=== PATIENT | female | born 1965 | race Caucasian/White ===

== ENCOUNTER → 2021-05-17 | Outpatient (CLI) | payer OTHER | LOC: EXRD 10:15 | DX: M25.512 Pain in left shoulder (principal) | CPT/HCPCS: 73030 ==

== ENCOUNTER 2021-08-14 07:38 | Emergency (ER) | payer OTHER ==
[2021-08-14] MEDS ORDERED: HYDROXYZINE HCL25 MG PO (10:24)
== END 2021-08-14 10:50 | disposition home or self-care (01) ==
LOC: ER1 07:38
DX: L50.9 Urticaria, unspecified (principal); Z90.710 Acquired absence of both cervix and uterus; Z90.49 Acquired absence of other specified parts of digestive tract
CPT/HCPCS: 96374; 96375; 99282; J1100; J1200; J2930